=== PATIENT | male | born 1995 | race African-American/Black ===

== ENCOUNTER 2020-03-20 14:23 | Emergency (ER) | payer SELFPAY ==
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
== END 2020-03-20 15:16 ==
LOC: MW.ED 14:23
DX: S01.01XA Laceration without foreign body of scalp, initial encounter (principal); S61.217A Laceration without foreign body of left little finger without damage to nail, initial encounter; R00.0 Tachycardia, unspecified; Y04.0XXA Assault by unarmed brawl or fight, initial encounter
CPT/HCPCS: 99282; 99284

== ENCOUNTER 2023-11-12 15:34 | Emergency (ER) | payer BC ==
[2023-11-12 15:58] LABS: BASOPHILS ABSOLUTE AUTO 0.07 K/uL (0.00-0.20); BASOPHILS PERCENT AUTO 0.5 % (0.0-1.0); EOSINOPHILS ABSOLUTE AUTO 0.08 K/uL (0.00-0.45); EOSINOPHILS PERCENT AUTO 0.6 % (0.0-6.0); HEMATOCRIT 43.1 % (42.0-52.0); HEMOGLOBIN 14.5 g/dL (14.0-18.0); IMMATURE GRAN ABSOLUTE AUTO 0.05 K/uL (0.00-0.05); IMMATURE GRAN PERCENT AUTO 0.3 % (0.0-0.4); LYMPHOCYTES ABSOLUTE AUTO 3.99 K/uL (1.00-4.80); LYMPHOCYTES PERCENT AUTO 27.6 % (24.0-44.0); MEAN CORPUSCULAR HEMOGLOBIN 27.8 pg (28.0-32.0); MEAN CORPUSCULAR HGB CONC 33.6 g/dL (32.0-36.0); MEAN CORPUSCULAR VOLUME 82.6 fL (83.0-99.0); MEAN PLATELET VOLUME 8.4 fL (9.4-12.4); MONOCYTES PERCENT AUTO 6.9 % (0.0-8.0); NEUTROPHILS ABSOLUTE AUTO 9.25 K/uL (1.80-7.70); NEUTROPHILS PERCENT AUTO 64.1 % (41.0-71.0); PLATELET COUNT,PLT 323 K/uL (150-400); RED BLOOD CELL COUNT 5.22 M/uL (4.52-5.90); WHITE BLOOD CELL COUNT,WBC 14.44 K/uL (3.9-11.3)
[2023-11-12 16:13] LABS: INR 1.1 (0.86-1.11); PTT,PARTIAL THROMBOPLSTIN TIME 27.1 SEC (23.9-30.7)
[2023-11-12] MEDS: Sodium Chloride 0.9% 1,000 ML IV STA (16:13)
[2023-11-12] MEDS: Aspirin 81 MG Tab.Chew PO ONE (16:13)
[2023-11-12 16:38] LABS: MAGNESIUM 2.2 mg/dL (1.8-2.4)
[2023-11-12] MEDS: Aspirin 81 MG Tab.Chew PO SCH (16:52)
[2023-11-12 17:20] LABS: AMPHETAMINES SCREEN, URINE NEGATIVE (CUTOFF=500); BARBITURATE SCREEN,URINE NEGATIVE (CUTOFF=200); BENZODIAZEPINES SCREEN,URINE NEGATIVE (CUTOFF=150); BUPRENORPHINE SCREEN,URINE NEGATIVE (CUTOFF=10); METHADONE SCREEN, URINE NEGATIVE (CUTOFF=200); METHAMPHETAMINES SCREEN, URINE NEGATIVE (CUTOFF=500); OXYCODONE SCREEN,URINE NEGATIVE (CUT0FF=100); PCP SCREEN,URINE NEGATIVE (CUTOFF=25); THC SCREEN,URINE 20 NG/ML PRESUMPTIVE POSITIVE (CUTOFF=50)
[2023-11-12 18:27] LABS: ALBUMIN 4.2 g/dL (3.4-5.0); BILIRUBIN TOTAL 0.5 mg/dL (0.2-1.0); CARBON DIOXIDE,CO2 21.6 mmol/L (21.0-32.0); CREATININE 1.2 mg/dL (0.8-1.3); EST CRCL DRUG DOSING (CG) 87.22 mL/min; POTASSIUM,K 3.4 mmol/L (3.5-5.1); PROTEIN TOTAL,TP 8.2 g/dL (6.4-8.2)
[2023-11-12] MEDS: Iopamidol 755 MG/ML 500 ML Multipack Bottle IVPUSH STA (18:55)
[2023-11-12 20:15] LABS: APPEARANCE,URINE CLEAR; BILIRUBIN,URINE NEGATIVE (NEGATIVE); COLOR,URINE YELLOW; GLUCOSE,URINE NEGATIVE (NEGATIVE); KETONES,URINE 40 mg/dL (NEGATIVE); LEUKOCYTE ESTERASE,URINE NEGATIVE (NEGATIVE); NITRITE,URINE NEGATIVE (NEGATIVE); OCCULT BLOOD,URINE NEGATIVE (NEGATIVE); PROTEIN,URINE NEGATIVE (NEGATIVE)
[2023-11-12 21:26] LABS: HIV12 AG/AB 4TH GEN W/REFLEX 0.3 INDEX (<1.0)
[2023-11-12 22:07] LABS: C. TRACHOMATIS BY PCR NOT DETECTED; N. GONORRHOEAE BY PCR NOT DETECTED
[2023-11-15 13:07] LABS: HEPATITIS BE ANTIGEN Negative (Negative)
[2023-11-16 05:07] LABS: HBV QNT BY NAAT (IU/ML) Not Detected; HBV QNT BY NAAT (LOG IU/ML) Not Detected log IU/mL; HBV QNT BY NAAT INTERP Not Detected (Not Detected)
[2023-11-16 09:07] LABS: HSV SUBTYPE SOURCE CSF; HSV1 SUBTYPE BY PCR Not Detected; HSV2 SUBTYPE BY PCR Not Detected
== END 2023-11-12 20:43 | disposition home or self-care (01) ==
LOC: MW.ED 15:34
DX: R07.2 Precordial pain (principal); F17.210 Nicotine dependence, cigarettes, uncomplicated; Z79.899 Other long term (current) drug therapy
CPT/HCPCS: 36415; 71275; 80053; 80305; 81003; 83690; 83735; 84484; 85025; 85610; 85730; 86592; 86803; 87350; 87389; 87491; 87517; 87529; 87591; 93005; 96360; 99285; A9270; J7030; Q9967; 86593; 86780